=== PATIENT | female | born 1995 | race Caucasian/White ===

== ENCOUNTER 2016-10-15 12:14 | Emergency (ER) | payer MEDICAID ==
[2016-10-15 12:30] VITALS: BP 124/75; PULSE 114; RESP 16; TEMP 98.4; O2SAT 92
== END 2016-10-15 13:45 | disposition left against medical advice (07) ==
DX: Z53.21 Procedure and treatment not carried out due to patient leaving prior to being seen by health care provider (principal)

== ENCOUNTER 2016-10-30 15:30 | Inpatient (IN) | payer MEDICAID ==
[2016-10-30] MEDS ORDERED: NS 1,000 ML IV ONE (15:35)
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
[2016-10-30] MEDS ORDERED: levETIRAcetam 500 MG in NS 100 ML IV ONE (15:42)
[2016-10-30 15:52] LABS: % IMMATURE GRANULYOCYTES 0.5 % (0.0-1.1); ABSOLUTE IMMATURE GRANULOCYTES 0.05 10^3/uL (0.00-0.10); ADD DIFF? NO; ADD MORPH? YES; ADD SCAN? NO; ATYPICAL LYMPHOCYTE FLAG 40 (0-99); FRAGMENT RBC FLAG 20 (0-99); HEMATOCRIT 36.9 % (38.0-47.0); HEMOGLOBIN 12.1 g/dL (12.6-16.3); LEFT SHIFT FLG 0 (0-99); LIPEMIA HEMOLYSIS FLAG 80 (0-99); MEAN CELL HEMOGLOBIN 22.2 pg (27.9-34.1); MEAN CELL HEMOGLOBIN CONCENTR. 32.8 g/dL (32.4-36.7); MEAN CELL VOLUME 67.6 fL (81.5-99.8); MEAN PLATELET VOLUME 10.3 fL (8.7-11.7); PLATELET CLUMPS FLAG 20 (0-99); PLATELET COUNT 332 10^3/uL (150-400); RED BLOOD CELL COUNT 5.46 10^6/uL (4.18-5.33); RED CELL DISTRIBUTION WIDTH 15.9 % (11.5-15.2)
[2016-10-30 16:05] LABS: ANION GAP 17 mEq/L (8-16); CALCIUM 9.8 mg/dL (8.5-10.4); CARBON DIOXIDE 20 mEq/l (22-31); CHLORIDE 105 mEq/L (97-110); CREATININE 0.7 mg/dL (0.6-1.0); ETHANOL SERUM 229 mg/dL (0-10); GLOMERULAR FILTRATION RATE > 60; GLUCOSE 83 mg/dL (70-100); POTASSIUM 4.1 mEq/L (3.5-5.2); SODIUM 142 mEq/L (134-144)
[2016-10-30 16:22] LABS: ELLIPTOCYTES 1+; HYPOCHROMIA 1+; MICROCYTES 2+; PLATELET ESTIMATE ADEQUATE (ADEQ)
[2016-10-30] MEDS ORDERED: LORazepam 2 MG/ML INJ IVP ONE (17:39)
[2016-10-30] MEDS ORDERED: LORazepam 2 MG/ML INJ ONE (17:40)
[2016-10-30] MEDS ORDERED: ONDANSETRON 4 MG/2 ML VIAL ONE (18:23)
[2016-10-30] MEDS ORDERED: ONDANSETRON 4 MG/2 ML VIAL IVP ONE (18:36)
[2016-10-30] MEDS ORDERED: ONDANSETRON DISINTEGRATING 4 MG TAB PO PRN (19:31)
[2016-10-30] MEDS ORDERED: NALOXONE HCL 0.4 MG/ML INJ IVP PRN (19:31)
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
[2016-10-30] MEDS: levETIRAcetam 500 MG in NS 100 ML IV SCH (21:28)
[2016-10-30] MEDS: LORazepam 2 MG/ML INJ IVP PRN ×2 (21:38→22:42)
[2016-10-30] MEDS: FAMOTIDINE 20 MG/NACL 50 ML IV SCH (21:53)
[2016-10-30 22:07] LABS: PHENCYCLIDINE URINE BCH < 6 ng/ml (NEGATIVE); PHENCYCLIDINE URINE BCH NEGATIVE (NEGATIVE)
[2016-10-30 22:35] LABS: TETRAHYDROCANNABINOL URINE > 800 ng/mL (NEGATIVE)
[2016-10-31] MEDS: LORazepam 2 MG/ML INJ IVP PRN ×4 (00:40→12:13)
[2016-10-31] MEDS: ONDANSETRON 4 MG/2 ML VIAL IVP PRN ×2 (01:10→06:54)
[2016-10-31] MEDS: FAMOTIDINE 20 MG/NACL 50 ML IV SCH ×2 (01:30→08:24)
[2016-10-31] MEDS: levETIRAcetam 500 MG in NS 100 ML IV SCH (08:24)
[2016-10-31] MEDS ORDERED: LEVETIRACETAM 1500 MG PO SCH (09:00)
[2016-10-31] MEDS ORDERED: levETIRAcetam 500 MG TAB PO SCH (09:00)
[2016-10-31] MEDS ORDERED: NON-FORMULARY NEW DRUG (Topiramate [Topamax] 50 MG) PO SCH (09:00)
[2016-10-31] MEDS ORDERED: ACYCLOVIR 400 MG TAB PO SCH (09:00)
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
--- NOTE | 2016-10-31 10:39 | SOAPPROG ---
SOAP Progress Note Assessment/Plan: Assessment: Plan: Subjective: awake, alert, impatient to leave mri neck pending, ortho eval pending. lungs clear, heart nml, no new complaints. states she does not want clavicle surgery. dc when eval completed. Objective: Vital Signs Temp Pulse Resp BP Pulse Ox 36.6 C 77 17 116/67 92 10/31/16 08:30 10/31/16 10:00 10/31/16 10:00 10/31/16 10:00 10/31/16 10:00 10/30/16 10/31/16 11/01/16 05:59 05:59 05:59 Intake Total 1260 Balance 1260 ICD10 Worksheet Patient Problems: Problems Problem Status Onset Alcohol intoxication Acute Skull fracture Acute Subarachnoid hemorrhage Acute Allergic reaction Acute Seizure Acute Subdural hemorrhage Acute
[2016-10-31 11:39] VITALS: BP 127/80; PULSE 72; RESP 14; TEMP 97.3; O2SAT 96
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
[2016-10-31] MEDS ORDERED: NICOTINE 14 MG/24 HR PATCH TD SCH (14:30)
[2016-10-31] MEDS ORDERED: NON-FORMULARY NEW DRUG (Mirtazapine [Remeron] 15 MG) PO SCH (21:00)
[2016-10-31] MEDS ORDERED: MIRTAZAPINE 15 MG TAB PO SCH (21:00)
[2016-11-01] MEDS ORDERED: TOPIRAMATE 25 MG TAB PO SCH (09:00)
== END 2016-10-31 14:59 | disposition left against medical advice (07) | DRG 86 ==
LOC: EDUNIT# → OBSVTOIN 19:31 → F2N 21:08 → F3N 10-31 11:33
PROVIDERS: ADMIT Surgery; ATTEND Surgery
DX: S02.101A Fracture of base of skull, right side, initial encounter for closed fracture (principal); S22.020A Wedge compression fracture of second thoracic vertebra, initial encounter for closed fracture; S22.030A Wedge compression fracture of third thoracic vertebra, initial encounter for closed fracture; T42.6X6A Underdosing of other antiepileptic and sedative-hypnotic drugs, initial encounter; S06.6X0A Traumatic subarachnoid hemorrhage without loss of consciousness, initial encounter; G40.909 Epilepsy, unspecified, not intractable, without status epilepticus; F12.929 Cannabis use, unspecified with intoxication, unspecified; F10.920 Alcohol use, unspecified with intoxication, uncomplicated; F31.9 Bipolar disorder, unspecified; Y90.7 Blood alcohol level of 200-239 mg/100 ml; Z87.820 Personal history of traumatic brain injury; Z72.0 Tobacco use; V10.0XXA Pedal cycle driver injured in collision with pedestrian or animal in nontraffic accident, initial encounter; Y93.55 Activity, bike riding; Y92.414 Local residential or business street as the place of occurrence of the external cause; S42.001A Fracture of unspecified part of right clavicle, initial encounter for closed fracture; Z59.0 Homelessness
CPT/HCPCS: 80307; 96374; 97161-GP; G0480; J1953; J2060; J2405

== ENCOUNTER 2017-04-14 06:01 | Emergency (ER) | payer MEDICAID ==
[2017-04-14 06:21] VITALS: RESP 16
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
[2017-04-14] MEDS ORDERED: CHLORDIAZEPOXIDE 25MG PREPK#6 BTL TAKEHOME ONE (06:51)
[2017-04-14] MEDS ORDERED: ONDANSETRON DISINTEGRATING 4 MG TAB PO ONE (06:51)
[2017-04-14 07:00] VITALS: BP 129/83; PULSE 76; TEMP 97.9; O2SAT 94
== END 2017-04-14 06:59 | disposition home or self-care (01) ==
DX: R11.2 Nausea with vomiting, unspecified (principal); F10.239 Alcohol dependence with withdrawal, unspecified; J45.909 Unspecified asthma, uncomplicated; F17.200 Nicotine dependence, unspecified, uncomplicated; Z91.040 Latex allergy status; Z91.010 Allergy to peanuts

== ENCOUNTER 2018-02-14 21:23 | Emergency (ER) | payer MEDICAID ==
[2018-02-14] MEDS ORDERED: NS 1,000 ML IV ONE (21:52)
[2018-02-14] MEDS ORDERED: PANTOPRAZOLE SODIUM 40 MG VIAL IVP ONE (21:52)
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
[2018-02-14] MEDS ORDERED: levETIRAcetam 500MG/NACL 100 ML IV ONE (22:03)
[2018-02-14] MEDS ORDERED: LORazepam 2 MG/ML INJ IVP ONE (22:03)
[2018-02-14] MEDS ORDERED: LORazepam 2 MG/ML INJ IM ONE (22:28)
[2018-02-14 23:12] LABS: PLATELET COUNT 253 10^3/uL (150-400)
[2018-02-14] MEDS ORDERED: ONDANSETRON 4 MG/2 ML VIAL IVP ONE (23:18)
[2018-02-14 23:27] LABS: CREATINE KINASE 47 IU/L (0-156)
[2018-02-14] MEDS ORDERED: PROMETHAZINE HCL 25 MG/ML INJ IVP ONE (23:32)
[2018-02-14] MEDS ORDERED: IOPAMIDOL (ISOVUE-300) 100 ML BTL ONE (23:38)
[2018-02-15] MEDS ORDERED: ONDANSETRON 4MG PREPACK#2 BTL TAKEHOME ONE (00:34)
[2018-02-15 01:43] VITALS: BP 123/67
== END 2018-02-15 01:42 | disposition home or self-care (01) ==
DX: K29.20 Alcoholic gastritis without bleeding (principal); F10.920 Alcohol use, unspecified with intoxication, uncomplicated
CPT/HCPCS: 96365; G0480; J1953; J2060; J2405; J2550; Q9967

== ENCOUNTER 2018-05-03 05:28 | Emergency (ER) | payer MEDICAID ==
[2018-05-03 05:33] VITALS: BP 136/96
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
== END 2018-05-03 06:51 | disposition home or self-care (01) ==
DX: L02.412 Cutaneous abscess of left axilla (principal); F17.200 Nicotine dependence, unspecified, uncomplicated

== ENCOUNTER 2018-05-20 08:44 | Inpatient (IN) | payer MEDICAID ==
[2018-05-20] MEDS ORDERED: NS 1,000 ML IV ONE (09:23)
[2018-05-20] MEDS ORDERED: ONDANSETRON DISINTEGRATING 4 MG TAB PO ONE (09:23)
--- NOTE | 2018-05-20 09:26 | EDPHY ---
H & P Time Seen by Provider: 05/20/18 09:13 HPI/ROS: CHIEF COMPLAINT: Vomiting, carpal spasm HISTORY OF PRESENT ILLNESS: Patient is a 22-year-old male who has a history of intermittent episodes of vomiting. She has an endoscopy scheduled. Last night she developed numerous episodes of vomiting. It was persisted throughout the night. She has been unable to tolerate any food or liquid intake due to the vomiting. A few hours ago she began to developed abdominal cramping and carpal spasm. Patient denies any drug use. She denies alcohol. No fevers or chills. No diarrhea. REVIEW OF SYSTEMS: 10 systems were reveiwed and are negative with the exception of the elements mentioned in the history of present illness. Past Medical/Surgical History: Includes chronic vomiting episodes, bipolar disorder, peptic ulcer disease, seizure, traumatic brain injury Past surgical history: Clavicle surgery Social history: Patient denies drugs or alcohol Smoking Status: Current every day smoker Physical Exam: Vitals noted. Tachycardic. GENERAL: Mild acute distress, alert. Answer my questions appropriately HEENT: Dry mucous membranes, no signs of dehydration. NECK: Normal, supple. RESPIRATORY: Clear to auscultation bilaterally, no rales, rhonchi or wheezing. CVS: Regular rate and rhythm, no rubs, murmurs, or gallops. ABDOMEN: Soft, nontender, nondistended, no organomegaly. Benign BACK: Normal to inspection, no CVA tenderness. SKIN: Normal color, no rash, warm, dry. No pallor. EXTREMITIES: Bilateral carpal spasm. No pedal edema, no calf tenderness, no Homans sign or cords, no joint swelling. NEURO/PSYCH: Alert and oriented, normal mood and affect, normal motor sensory exam. No obvious cranial nerve deficit. Constitutional: Initial Vital Signs Heart Rate 154 H 05/20/18 08:50 Respiratory Rate 22 H 05/20/18 08:50 Blood Pressure 130/101 H 05/20/18 08:50 O2 Sat (%) 95 05/20/18 08:50 O2 Delivery Mode Room Air Allergies/Adverse Reactions: diphenhydramine HCl [From Benadryl] Allergy (Verified 05/20/18 10:46) Hives latex Allergy (Verified 05/20/18 08:55) peanut Allergy (Verified 05/20/18 08:55) BEE STING Allergy (Uncoded 05/20/18 08:55) Home Medications: Medication Instructions Recorded [place] Carbonate [[place] 600 mg PO HS 02/07/18 Carbonate Cap 300 mg (*)] Metoclopramide [Reglan 10 mg tab 5 - 10 mg PO TID PRN 02/07/18 (*)] QUEtiapine FUMARATE [Seroquel 25 25 mg PO BID PRN 02/07/18 mg (*)] Ranitidine HCl [Zantac] 300 mg PO BID PRN 02/07/18 Sucralfate [Carafate 1 GM (*)] 1 gm PO QID 02/07/18 Temazepam [Restoril 15 MG (*)] 15 mg PO HS PRN 02/07/18 levETIRAcetam [Keppra] 1,500 mg PO BID 02/07/18 traZODone [traZODONE 50MG (*)] 50 mg PO HS 02/07/18 Ondansetron Odt [Zofran Odt 4 mg 4 mg PO Q4 PRN #12 tab 02/15/18 (*)] Pantoprazole Sodium [Protonix 40mg 40 mg PO DAILY #30 tab 02/15/18 (*)] Promethazine HCl [Phenergan] 25 mg RC Q6 PRN #10 supp.rect 02/15/18 QUEtiapine FUMARATE [Seroquel 300 mg PO HS 05/20/18 300mg (*)] Medical Decision Making - Diagnostics Imaging Results: Imaging Impressions Abdomen Ultrasound 05/20/18 10:14 Impression: 1. The liver is upper-normal in size, with mild generalized hepatic steatosis. 2. Normal appearance of the gallbladder. 3. Mild stable prominence of the common bile duct, slightly smaller than on 02/14, with no associated intrahepatic bile duct dilatation or choledocholithiasis observed. The patient's total bilirubin is reportedly elevated, and if there is further clinical concern, an MRCP could be considered. Findings were discussed with HAYDEN LANGE MD at 10:57, on 05/20/2018. ED Course/Re-evaluation: In the emergency department I discussed possible etiologies with the patient. I answered all her questions. IV placed. Laboratory studies were obtained. Patient given normal saline 1 L IV for hydration EKG: Sinus tachycardia at 134. Normal axis. Normal intervals. No ST or T- wave abnormality. Patient's white count was normal. The patient was mildly anemic with hematocrit 37. Patient's chemistry panel was abnormal. Her sodium was low 133. Potassium was low at 2.8. Chloride was pending. Carbon dioxide was 23. Anion gap was elevated at 35. creatinine was elevated at 1.7. Glucose was 106. Total bilirubin was elevated at 7.6. Lipase was 38. was negative. Calcium was normal at 9.4. Patient was given potassium 60 mEq orally. Patient was given normal saline 500 mL IV. Ultrasound of the right upper quadrant was ordered. Ultrasound: Please refer the dictated report. Patient has mildly elevated size of her common bile duct. However, Dr. Johnson compared this with a previous CT scan when it was larger during the CT imaging study. No stones noted. I discussed the case with the hospitalist service. Dr. Mayorga will admit. I discussed the results with the patient. I answered all her questions. Differential Diagnosis: My differential includes but is not limited to electrolyte abnormality, sugar abnormality, dehydration, small-bowel obstruction, perforation - Data Points Laboratory Results: Laboratory Results 05/20/18 09:30 05/20/18 09:30 05/20/18 05/20/18 05/20/18 10:00 10:00 09:45 WBC RBC Hgb Hct MCV MCH MCHC RDW Plt Count MPV Neut % (Auto) Lymph % (Auto) Parke % (Auto) Eos % (Auto) Baso % (Auto) Nucleat RBC Rel Count Absolute Neuts (auto) Absolute Lymphs (auto) Absolute Monos (auto) Absolute Eos (auto) Absolute Basos (auto) Absolute Nucleated RBC Immature Gran % Immature Gran # PT 14.7 SEC SEC (12.0-15.0) INR 1.20 H (0.83-1.16) APTT 31.0 SEC SEC (23.0-38.0) Sodium Potassium Chloride Carbon Dioxide Anion Gap BUN Creatinine Estimated GFR Glucose Calcium Magnesium Pending Total Bilirubin Conjugated Bilirubin Unconjugated Bilirubin AST ALT Alkaline Phosphatase Total Protein Albumin Lipase Beta HCG, Qual Hepatitis A IgM Ab Pending Hep Bs Antigen Pending Hep B Core IgM Ab Pending Hepatitis C Antibody Pending 05/20/18 05/20/18 05/20/18 09:30 09:30 09:30 WBC 9.27 10^3/uL 10^3/uL (3.80-9.50) RBC 5.28 10^6/uL 10^6/uL (4.18-5.33) Hgb 12.2 g/dL L g/dL (12.6-16.3) Hct 37.6 % L % (38.0-47.0) MCV 71.2 fL L fL (81.5-99.8) MCH 23.1 pg L pg (27.9-34.1) MCHC 32.4 g/dL g/dL (32.4-36.7) RDW 18.4 % H % (11.5-15.2) Plt Count 254 10^3/uL 10^3/uL (150-400) MPV 9.5 fL fL (8.7-11.7) Neut % (Auto) 85.0 % H % (39.3-74.2) Lymph % (Auto) 7.3 % L % (15.0-45.0) Parke % (Auto) 7.1 % % (4.5-13.0) Eos % (Auto) 0.0 % L % (0.6-7.6) Baso % (Auto) 0.2 % L % (0.3-1.7) Nucleat RBC Rel Count 0.9 % H % (0.0-0.2) Absolute Neuts (auto) 7.87 10^3/uL H 10^3/uL (1.70-6.50) Absolute Lymphs (auto) 0.68 10^3/uL L 10^3/uL (1.00-3.00) Absolute Monos (auto) 0.66 10^3/uL 10^3/uL (0.30-0.80) Absolute Eos (auto) 0.00 10^3/uL L 10^3/uL (0.03-0.40) Absolute Basos (auto) 0.02 10^3/uL 10^3/uL (0.02-0.10) Absolute Nucleated RBC 0.08 10^3/uL H 10^3/uL (0-0.01) Immature Gran % 0.4 % % (0.0-1.1) Immature Gran # 0.04 10^3/uL 10^3/uL (0.00-0.10) PT INR APTT Sodium 133 mEq/L L mEq/L (135-145) Potassium 2.8 mEq/L L mEq/L (3.5-5.2) Chloride 75 mEq/L L mEq/L (97-110) Carbon Dioxide 23 mEq/l mEq/l (22-31) Anion Gap 35 mEq/L H mEq/L (6-14) BUN 12 mg/dL mg/dL (7-23) Creatinine 1.7 mg/dL H mg/dL (0.6-1.0) Estimated GFR 37 Glucose 106 mg/dL H mg/dL (70-100) Calcium 9.4 mg/dL mg/dL (8.5-10.4) Magnesium Total Bilirubin 7.6 mg/dL H mg/dL (0.1-1.4) Conjugated Bilirubin 3.3 mg/dL H mg/dL (0.0-0.5) Unconjugated Bilirubin 4.3 mg/dL H mg/dL (0.0-1.1) AST 591 IU/L H IU/L (14-46) ALT 218 IU/L H IU/L (9-52) Alkaline Phosphatase 114 IU/L IU/L (38-126) Total Protein 8.9 g/dL H g/dL (6.3-8.2) Albumin 5.5 g/dL H g/dL (3.5-5.0) Lipase 38 IU/L IU/L (23-300) Beta HCG, Qual NEGATIVE Hepatitis A IgM Ab Hep Bs Antigen Hep B Core IgM Ab Hepatitis C Antibody Medications Given: Discontinued Medications Sodium Chloride (Ns) 1,000 mls @ 0 mls/hr IV EDNOW ONE; Wide Open PRN Reason: Protocol Stop: 05/20/18 09:24 Last Admin: 05/20/18 09:45 Dose: 1,000 mls Sodium Chloride (Ns) 500 mls @ 0 mls/hr IV EDNOW ONE; Wide Open PRN Reason: Protocol Stop: 05/20/18 10:15 Last Admin: 05/20/18 10:47 Dose: 500 mls Ondansetron HCl (Zofran Odt) 4 mg PO EDNOW ONE Stop: 05/20/18 09:24 Last Admin: 05/20/18 09:42 Dose: Not Given Ondansetron HCl (Zofran) 4 mg IVP EDNOW ONE Stop: 05/20/18 09:43 Last Admin: 05/20/18 09:45 Dose: 4 mg Potassium Chloride (Potassium Chloride Oral Liquid) 60 meq PO EDNOW ONE Stop: 05/20/18 10:18 Last Admin: 05/20/18 11:03 Dose: Not Given Departure - Departure Disposition: [facility] Acute Clinical Impression: Hyponatremia, Renal insufficiency, High bilirubin Vomiting Qualifiers: Vomiting type: unspecified Vomiting Intractability: non-intractable Nausea presence: with nausea Qualified Code(s): R11.2 - Nausea with vomiting, unspecified Condition: Good
[2018-05-20] MEDS ORDERED: ONDANSETRON 4 MG/2 ML VIAL IVP ONE (09:42)
[2018-05-20 09:53] LABS: PLATELET COUNT 254 10^3/uL (150-400)
[2018-05-20] MEDS ORDERED: NS 500 ML IV ONE (10:14)
[2018-05-20 10:28] LABS: INR 1.2 (0.83-1.16); PROTIME(PATIENT) 14.7 SEC (12.0-15.0)
[2018-05-20] MEDS ORDERED: HYDROmorphONE/DILAUDID 1 MG/ML INJ IVP PRN (10:46)
[2018-05-20] MEDS ORDERED: ONDANSETRON 4 MG/2 ML VIAL IVP PRN (10:46)
[2018-05-20] MEDS ORDERED: ONDANSETRON DISINTEGRATING 4 MG TAB PO PRN (10:46)
[2018-05-20] MEDS: POTASSIUM CL 20 MEQ/15 ML UDCUP PO ONE ×2 (10:47→11:03)
[2018-05-20] MEDS ORDERED: PROMETHAZINE HCL 25 MG/ML INJ IVP PRN (10:57)
[2018-05-20] MEDS ORDERED: NS W/ 20 KCl/L 1,000 ML IV SCH (11:00)
[2018-05-20] MEDS ORDERED: MAGNESIUM SULF 2 GM/WATER 50 ML IV ONE ×2 (12:40→12:50)
[2018-05-20] MEDS ORDERED: PROTOCOL MAGNESIUM 1 DOSE IV PRN (12:41)
[2018-05-20] MEDS ORDERED: LORazepam 1 MG TAB PO PRN (12:45)
[2018-05-20] MEDS ORDERED: FLUMAZENIL 0.5 MG/5 ML MDV IVP PRN (12:45)
[2018-05-20] MEDS ORDERED: TEMAZEPAM 15 MG CAP PO PRN (12:47)
[2018-05-20] MEDS ORDERED: QUEtiapine FUMARATE 25 MG TAB PO PRN (12:47)
--- NOTE | 2018-05-20 13:04 | PDGENHP ---
History and Physical - Chief Complaint N/V - History of Present Illness 22 yo female with h/o etoh abuse, PUD, and TBI with seizure disorder presents to ED with N/V for past 2 days. She denies hematemesis or coffee ground emesis. No melena or hematochezia. She c/o epigastric and RUQ pain. No fevers /chills. No CP or SOB. She says she has a h/o intermittent N/V dating back years. She has an outpatient EGD planned at [place] later this week. She drinks several shots of whiskey daily and cannot recall the last time she went > 24 hrs without alcohol. She was sober for 1 year at one point due to legal trouble and probation. However, she has little incentive or desire to maintain sobriety. She has been unable to tolerate oral intake for past 2 days. Upon arrival to the ED, she was tachycardic in the 150's, but normotensive and afebrile. She received 1.5 L NS. Her potassium was quite low at 2.8. She was given 60 mEq's oral potassium, but vomited this immediately after. She has had contractures in her hands and UE's. History Information - Allergies/Home Medication List Allergies/Adverse Reactions: diphenhydramine HCl [From Benadryl] Allergy (Verified 05/20/18 10:46) Hives latex Allergy (Verified 05/20/18 08:55) peanut Allergy (Verified 05/20/18 08:55) BEE STING Allergy (Uncoded 05/20/18 08:55) Home Medications: [place] Carbonate [[place] Carbonate Cap 300 mg (*)] 600 mg PO HS 02/07/18 [ Last Taken 05/19/18] Metoclopramide [Reglan 10 mg tab (*)] 5 - 10 mg PO TID PRN 02/07/18 [Last Taken 05/20/18] QUEtiapine FUMARATE [Seroquel 25 mg (*)] 25 mg PO BID PRN 02/07/18 [Last Taken 02/06/18 08:00] Ranitidine HCl [Zantac] 300 mg PO BID PRN 02/07/18 [Last Taken 3 Days Ago ~02/04] Sucralfate [Carafate 1 GM (*)] 1 gm PO QID 02/07/18 [Last Taken 05/20/18] Temazepam [Restoril 15 MG (*)] 15 mg PO HS PRN 02/07/18 [Last Taken 02/05/18] levETIRAcetam [Keppra] 1,500 mg PO BID 02/07/18 [Last Taken 05/20/18] traZODone [traZODONE 50MG (*)] 50 mg PO HS 02/07/18 [Last Taken 05/19/18] QUEtiapine FUMARATE [Seroquel 300mg (*)] 300 mg PO HS 05/20/18 [Last Taken 05/19] I have personally reviewed and updated: family history, medical history, social history, surgical history - Past Medical History Additional medical history: estranged from her biologic family. Bipolar disorder. Alcohol abuse / dependence. Seizure disorder. TBI. PUD - Surgical History Reports: no pertinent surgical hx - Family History Additional family history: Alcoholism - Social History Smoking Status: Current every day smoker Tobacco Use: Greater than 1 pack/day Alcohol Use: Heavy Drug Use: Marijuana Review of Systems Review of Systems: ROS: 10pt was reviewed & negative except for what was stated in HPI & below Physical Exam Physical Exam: Temp Pulse Resp BP Pulse Ox 36.8 C 82 16 125/88 H 95 05/20/18 11:43 05/20/18 11:43 05/20/18 11:43 05/20/18 11:43 05/20/18 11:43 Constitutional: no apparent distress Eyes: PERRL Ears, Nose, Mouth, Throat: moist mucous membranes Cardiovascular: regular rate and rhythym Respiratory: no respiratory distress, clear to auscultation Gastrointestinal: other (soft, nondistended, +epigastric and RUQ TTP, no r/r/g, liver edge palpable) Skin: warm, other (small excoriations on face) Musculoskeletal: full muscle strength Neurologic: AAOx3, other (mild hand contractures) Psychiatric: interacting appropriately Lab Data & Imaging Review 05/20/18 09:30 05/20/18 15:33 WBC 9.27 10^3/uL (3.80-9.50) 05/20/18 09:30 RBC 5.28 10^6/uL (4.18-5.33) 05/20/18 09:30 Hgb 12.2 g/dL (12.6-16.3) L 05/20/18 09:30 Hct 37.6 % (38.0-47.0) L 05/20/18 09:30 MCV 71.2 fL (81.5-99.8) L 05/20/18 09:30 MCH 23.1 pg (27.9-34.1) L 05/20/18 09:30 MCHC 32.4 g/dL (32.4-36.7) 05/20/18 09:30 RDW 18.4 % (11.5-15.2) H 05/20/18 09:30 Plt Count 254 10^3/uL (150-400) 05/20/18 09:30 MPV 9.5 fL (8.7-11.7) 05/20/18 09:30 Neut % (Auto) 85.0 % (39.3-74.2) H 05/20/18 09:30 Lymph % (Auto) 7.3 % (15.0-45.0) L 05/20/18 09:30 [place] % (Auto) 7.1 % (4.5-13.0) 05/20/18 09:30 Eos % (Auto) 0.0 % (0.6-7.6) L 05/20/18 09:30 Baso % (Auto) 0.2 % (0.3-1.7) L 05/20/18 09:30 Nucleat RBC Rel Count 0.9 % (0.0-0.2) H 05/20/18 09:30 Absolute Neuts (auto) 7.87 10^3/uL (1.70-6.50) H 05/20/18 09:30 Absolute Lymphs (auto) 0.68 10^3/uL (1.00-3.00) L 05/20/18 09:30 Absolute Monos (auto) 0.66 10^3/uL (0.30-0.80) 05/20/18 09:30 Absolute Eos (auto) 0.00 10^3/uL (0.03-0.40) L 05/20/18 09:30 Absolute Basos (auto) 0.02 10^3/uL (0.02-0.10) 05/20/18 09:30 Absolute Nucleated RBC 0.08 10^3/uL (0-0.01) H 05/20/18 09:30 Immature Gran % 0.4 % (0.0-1.1) 05/20/18 09:30 Immature Gran # 0.04 10^3/uL (0.00-0.10) 05/20/18 09:30 PT 14.7 SEC (12.0-15.0) 05/20/18 09:45 INR 1.20 (0.83-1.16) H 05/20/18 09:45 APTT 31.0 SEC (23.0-38.0) 05/20/18 09:45 Sodium 133 mEq/L (135-145) L 05/20/18 09:30 Potassium 2.8 mEq/L (3.5-5.2) L 05/20/18 09:30 Chloride 75 mEq/L (97-110) L 05/20/18 09:30 Carbon Dioxide 23 mEq/l (22-31) 05/20/18 09:30 Anion Gap 35 mEq/L (6-14) H 05/20/18 09:30 BUN 12 mg/dL (7-23) 05/20/18 09:30 Creatinine 1.7 mg/dL (0.6-1.0) H 05/20/18 09:30 Estimated GFR 37 05/20/18 09:30 Glucose 106 mg/dL (70-100) H 05/20/18 09:30 Calcium 9.4 mg/dL (8.5-10.4) 05/20/18 09:30 Magnesium 0.7 mg/dL (1.6-2.3) L* 05/20/18 10:00 Total Bilirubin 7.6 mg/dL (0.1-1.4) H 05/20/18 09:30 Conjugated Bilirubin 3.3 mg/dL (0.0-0.5) H 05/20/18 09:30 Unconjugated Bilirubin 4.3 mg/dL (0.0-1.1) H 05/20/18 09:30 AST 591 IU/L (14-46) H 05/20/18 09:30 ALT 218 IU/L (9-52) H 05/20/18 09:30 Alkaline Phosphatase 114 IU/L (38-126) 05/20/18 09:30 Total Protein 8.9 g/dL (6.3-8.2) H 05/20/18 09:30 Albumin 5.5 g/dL (3.5-5.0) H 05/20/18 09:30 Lipase 38 IU/L (23-300) 05/20/18 09:30 Beta HCG, Qual NEGATIVE 05/20/18 09:30 Visualized and Interpreted EKG results: Yes EKG additional interpertation: sinus tachycardia Assessment & Plan Assessment: N/V - in setting of alcoholic hepatitis and possible gastritis component. No hematemesis or coffee ground emesis. -cont IVF's, anti-emetics, IV PPI -check H Pylori Ab, if positive would treat given active symptoms -may warrant GI consult / inpt EGD if not improving. She has EGD planned as outpt at [place] later this week. Alcohol induced hepatitis - this is most likely etiology of elevated LFT's with AST>ALT and elevated bili with nl alk phos and heavy etoh hx. DF 13, no steroids indicated. U/S reviewed- mild hepatic steatosis, nl gb and no biliary ductal dilatation. -supportive care with IVF's -trend LFT's -send viral hepatitis panel and tylenol level Hypokalemia / Hypomagnesemia - symptomatic with UE muscle contractures and weakness, 2/2 GI losses in setting of N/V. EKG ok. -replace Mag per protocol -replace K and rpt bmp this afternoon -monitor on telemetry GERHARD - likely pre-renal given above -NS, follow Seizure disorder with h/o TBI -IV Keppra for now given inability to tolerate po SIRS - likely due to volume depletion with N/V and hepatitis, HR already improved with IVF's -cont IV hydration Bipolar disorder - cont Seroquel as tolerated DVT PPLX - SCD's for now, defer pharm with etoh hx and vomiting due to bleeding risk Full code Dispo - admit to inpt, anticipate >48 hrs hospitalization for management of N/V , alcoholic hepatitis and volume depletion with electrolyte abnormalities. Requested CM to contact [place] to see if they would like her transferred to their facility given her [place] insurance.
[2018-05-20 13:05] LABS: HEPATITIS B SURFACE ANTIGEN NEGATIVE (NEGATIVE)
[2018-05-20 13:06] LABS: HEPATITIS A ANTIBODY IGM (BCH) NEGATIVE (NEGATIVE); HEPATITIS B CORE AB IGM NEGATIVE (NEGATIVE)
[2018-05-20 13:17] LABS: HEPATITIS C ANTIBODY TOTAL NEGATIVE (NEGATIVE)
[2018-05-20] MEDS: PANTOPRAZOLE SODIUM 40 MG VIAL IVP SCH (13:17)
[2018-05-20] MEDS: NICOTINE 21 MG/24 HR PATCH TD SCH (13:59)
[2018-05-20] MEDS: levETIRAcetam 750 MG in NS 100 ML IV SCH ×2 (14:08→22:05)
[2018-05-20] MEDS: POTASSIUM Cl (KCl) 100 ML IV SCH ×4 (14:31→18:22)
[2018-05-20] MEDS ORDERED: PROTOCOL POTASSIUM 1 DOSE MISC PRN (16:24)
[2018-05-20] MEDS ORDERED: POTASSIUM Cl (KCl) 100 ML IV SCH (16:30)
[2018-05-20] MEDS: POTASSIUM Cl (KCl) 40 MEQ in NS 1,000 ML IV SCH (17:11)
[2018-05-20] MEDS: oxyCODONE IR 5 MG TAB PO PRN (17:48)
[2018-05-20] MEDS ORDERED: POTASSIUM CL 10 MEQ TAB PO ONE (20:04)
[2018-05-20] MEDS: traZODone 50 MG TAB PO SCH (20:13)
[2018-05-20] MEDS: QUEtiapine FUMARATE 300 MG TAB PO SCH (20:14)
[2018-05-20] MEDS: LITHIUM CARBONATE 300 MG CAP PO SCH (20:14)
--- NOTE | 2018-05-20 21:25 | PDMN ---
Medical Necessity Medical necessity: Pt meets IP criteria per & MCG M-[id number] Liver Disease Complications; est los >2 mn for eval/tx of alcohol induced hepatitis w/volume depletion, electrolyte abnormalities, acute kidney injury & N/V requiring further monitoring, IVFs, IV antiemetics & advancement of diet as tolerated; hx etoh abuse, TBI, seizures; per H&P & order 05/20/18
[2018-05-20] MEDS: LORazepam 2 MG/ML INJ IVP PRN (22:36)
[2018-05-21 05:37] LABS: INR 1.34 (0.83-1.16)
[2018-05-21 05:45] LABS: PLATELET COUNT 129 10^3/uL (150-400)
[2018-05-21] MEDS ORDERED: POTASSIUM CL 10 MEQ TAB PO ONE (07:46)
[2018-05-21] MEDS: NICOTINE 21 MG/24 HR PATCH TD SCH (09:20)
[2018-05-21] MEDS: THIAMINE HCL 500 MG in NS 100 ML IV SCH (09:21)
[2018-05-21] MEDS: PANTOPRAZOLE SODIUM 40 MG VIAL IVP SCH (09:21)
[2018-05-21] MEDS: levETIRAcetam 750 MG in NS 100 ML IV SCH (09:21)
--- NOTE | 2018-05-21 10:15 | ASMTCAGE ---
CAGE Do you feel you ought to Answers: Yes cut down on your drinking or drug use? Do people annoy you by Answers: Yes criticizing your drinking or drug use? Do you feel guilty about Answers: Yes your drinking or drug use? Do you drink or use drugs Answers: No first thing in the morning ([employer] Room)? Date Signed: 05/21/2018 10:14 AM Electronically Signed By:MIKE Dave
--- NOTE | 2018-05-21 10:17 | ASMTCMCOM ---
CM Note CM Note Notes: Pts case discussed w/ Salma Gasca NP. Pt is a 22 y/o female admitted for hypokalemia and hyponatremia. Pt with a hx of etoh abuse. CM met w/ pt and provided etoh resources. CAGE completed. CM did want to discuss her etoh abuse further. Pt iwll most likely d/c independent when medically stable. Referral to [facility]. CM available for changes. Plan: Independent Date Signed: 05/21/2018 10:16 AM Electronically Signed By:MIKE Dave
[2018-05-21] MEDS: POTASSIUM Cl (KCl) 40 MEQ in NS 1,000 ML IV SCH (10:57)
--- NOTE | 2018-05-21 12:59 | HOSPPROG ---
Hospitalist Progress Note Assessment/Plan: 22 yo female with h/o etoh abuse, PUD, and TBI with seizure disorder presents to ED with N/V for past 2 days. First encounter, chart reviewed. *N/V - in setting of alcoholic hepatitis and possible gastritis component. -resolved, eating today -EGD at [place] as an OP -H pylori is negative -Tylenol level <10 -also uses Cannibis frequently-could be r/t hyperemesis syndrome (THC level 800) *Alcohol induced hepatitis -labs better today -viral hepatitis panel is negative -US shows mild hepatic steatosis, normal gallbladder, no biliary ductal dilatation *Hypokalemia / Hypomagnesemia -was symptomatic on admissions -on electrolyte protocol -tele *reflux -added prn TUMS *GERHARD -resolved *anemia, thrombocytopenia -poss dilutional and due to alcohol use -recheck in a.m. *Seizure disorder with h/o TBI -given IV Keppra, will resume her home oral meds *SIRS - due to the above -resolved *Bipolar disorder - cont Seroquel DVT PPLX - SCD's, ambulation *plan: order regular diet, discussed w patient the possible etiologies of her N/ V. Reviewed w her about hyperemesis syndrome and the impacts of alcohol. She said she needed to do one of them. Hopefully, can dc tomorrow and f/u with [place] as scheduled. Subjective: Aliza is feeling better, no longer vomiting. Objective: Vital Signs Temp Pulse Resp BP Pulse Ox 36.9 C 96 20 110/71 94 05/21/18 11:37 05/21/18 11:37 05/21/18 11:37 05/21/18 11:37 05/21/18 11:37 Laboratory Results 05/21/18 04:57 05/21/18 04:57 05/20/18 05/21/18 05/22/18 05:59 05:59 05:59 Intake Total 3420 Output Total 200 1600 Balance 3220 -1600 PT 16.0 SEC (12.0-15.0) H 05/21/18 04:57 INR 1.34 (0.83-1.16) H 05/21/18 04:57 - Physical Exam Constitutional: no apparent distress Eyes: PERRL, other (wearing glasses) Ears, Nose, Mouth, Throat: hearing normal Cardiovascular: regular rate and rhythym Respiratory: no respiratory distress, rhonchi (bases, loose cough ) Gastrointestinal: normoactive bowel sounds, soft, non-tender abdomen Skin: warm Neurologic: AAOx3 Psychiatric: interacting appropriately, poor insight ICD10 Worksheet Patient Problems: Problems Problem Status Onset High bilirubin Acute Hyponatremia Acute Renal insufficiency Acute Vomiting Acute Alcohol intoxication Acute Allergic reaction Acute Hypoglycemia Acute Hypokalemia Acute Seizure Acute Skull fracture Acute Subarachnoid hemorrhage Acute Subdural hemorrhage Acute
[2018-05-21] MEDS ORDERED: CALCIUM CARBONATE 500 MG CHEWABLE TAB PO PRN (14:24)
--- NOTE | 2018-05-21 15:48 | CPEKG ---
Test Reason : OPEN Blood Pressure : / mmHG Vent. Rate : 134 BPM Atrial Rate : 136 BPM P-R Int : 089 ms QRS Dur : 082 ms QT Int : 322 ms P-R-T Axes : 081 075 047 degrees QTc Int : 481 ms Sinus tachycardia Borderline prolonged QT interval Confirmed by Angi Garcia ([id number]) on 05/21/2018 3:47:49 PM Referred By: Angi Garcia Confirmed By:Angi Garcia
[2018-05-21] MEDS: levETIRAcetam 500 MG TAB PO SCH (19:48)
[2018-05-21] MEDS: LITHIUM CARBONATE 300 MG CAP PO SCH (19:48)
[2018-05-21] MEDS: QUEtiapine FUMARATE 300 MG TAB PO SCH (19:48)
[2018-05-21] MEDS: traZODone 50 MG TAB PO SCH (19:49)
[2018-05-21] MEDS: LORazepam 2 MG/ML INJ IVP PRN (20:00)
[2018-05-22] MEDS: LORazepam 2 MG/ML INJ IVP PRN ×3 (02:41→21:42)
[2018-05-22] MEDS: PANTOPRAZOLE SODIUM 40 MG VIAL IVP SCH (08:32)
[2018-05-22] MEDS: THIAMINE HCL 500 MG in NS 100 ML IV SCH (08:45)
[2018-05-22] MEDS: NICOTINE 21 MG/24 HR PATCH TD SCH (08:45)
[2018-05-22] MEDS: levETIRAcetam 500 MG TAB PO SCH ×2 (08:48→21:03)
[2018-05-22 08:51] LABS: PLATELET COUNT 122 10^3/uL (150-400)
[2018-05-22] MEDS ORDERED: MAGNESIUM SULF 1 GM/DEXTROSE 100 ML IV ONE (09:53)
[2018-05-22] MEDS ORDERED: POTASSIUM CL 10 MEQ TAB PO ONE ×2 (09:54→21:31)
[2018-05-22] MEDS ORDERED: PNEUMOCOCCAL 0.5ML VACCINE VIAL (PNEUMOVAX 23) IM ONE (10:54)
--- NOTE | 2018-05-22 15:40 | HOSPPROG ---
Hospitalist Progress Note Assessment/Plan: 22 yo female with h/o etoh abuse, PUD, and TBI with seizure disorder presents to ED with N/V for past 2 days. First encounter, chart reviewed. *N/V - in setting of alcoholic hepatitis and possible gastritis component. -resolved, eating today -EGD at [place] as an OP -H pylori is negative -Tylenol level <10 -also uses Cannibis frequently-could be r/t hyperemesis syndrome (THC level 800) *Alcohol induced hepatitis -LFT's a bit worse today, will recheck again in the morning -reviewed her labs in the past; these levels are much higher -viral hepatitis panel is negative -US shows mild hepatic steatosis, normal gallbladder, no biliary ductal dilatation *Hypokalemia / Hypomagnesemia -was symptomatic on admissions -on electrolyte protocol -tele *reflux -added prn TUMS *GERHARD -resolved *anemia, thrombocytopenia -poss dilutional and due to alcohol use -better today, has hx of thalassemia minor *Seizure disorder with h/o TBI -given IV Keppra, will resume her home oral meds *SIRS - due to the above -resolved *Bipolar disorder - cont Seroquel DVT PPLX - SCD's, ambulation *plan: recheck labs in the a.m., Kamilla is teary eyed, wants to go home, worried her boyfriend is drinking and not taking care of the dog and cat Subjective: Kamilla is very upset about not leaving, having some lower quadrant pain (on her menses) Objective: Vital Signs Temp Pulse Resp BP Pulse Ox 36.5 C 103 H 16 120/91 H 95 05/22/18 15:09 05/22/18 15:09 05/22/18 15:09 05/22/18 15:09 05/22/18 15:09 Laboratory Results 05/22/18 08:40 05/22/18 08:40 05/21/18 05/22/18 05/23/18 05:59 05:59 05:59 Intake Total 3420 1750 450 Output Total 200 5275 1000 Balance 3220 -3525 -550 PT 16.0 SEC (12.0-15.0) H 05/21/18 04:57 INR 1.34 (0.83-1.16) H 05/21/18 04:57 - Physical Exam Constitutional: appears nourished, uncomfortable Eyes: PERRL Ears, Nose, Mouth, Throat: hearing normal Cardiovascular: regular rate and rhythym Respiratory: no respiratory distress Gastrointestinal: normoactive bowel sounds, tenderness (bilat lower quadrants) Skin: warm Musculoskeletal: full muscle strength Neurologic: AAOx3 Psychiatric: anxious ICD10 Worksheet Patient Problems: Problems Problem Status Onset High bilirubin Acute Hyponatremia Acute Renal insufficiency Acute Vomiting Acute Alcohol intoxication Acute Allergic reaction Acute Hypoglycemia Acute Hypokalemia Acute Seizure Acute Skull fracture Acute Subarachnoid hemorrhage Acute Subdural hemorrhage Acute
[2018-05-22] MEDS: oxyCODONE IR 5 MG TAB PO PRN ×2 (17:31→21:05)
[2018-05-22] MEDS: traZODone 50 MG TAB PO SCH (21:04)
[2018-05-22] MEDS: LITHIUM CARBONATE 300 MG CAP PO SCH (21:04)
[2018-05-22] MEDS: QUEtiapine FUMARATE 300 MG TAB PO SCH (21:04)
[2018-05-23] MEDS ORDERED: MAGNESIUM SULF 1 GM/DEXTROSE 100 ML IV ONE (07:45)
[2018-05-23] MEDS ORDERED: POTASSIUM CL 10 MEQ TAB PO ONE (07:45)
[2018-05-23 08:58] VITALS: BP 91/65
[2018-05-23] MEDS: THIAMINE HCL 500 MG in NS 100 ML IV SCH (09:43)
[2018-05-23] MEDS: levETIRAcetam 500 MG TAB PO SCH (09:43)
--- NOTE | 2018-05-23 09:57 | HOSPPROG ---
Hospitalist Progress Note Assessment/Plan: 22 yo female with h/o etoh abuse, PUD, and TBI with seizure disorder presents to ED with N/V for past 2 days. *N/V - in setting of alcoholic hepatitis and possible gastritis component. -resolved, eating today -EGD at [facility] as an OP -H pylori is negative -Tylenol level <10 -also uses Cannibis frequently-could be r/t hyperemesis syndrome (THC level 800) *Alcohol induced hepatitis -better today -reviewed her labs in the past; these levels are much higher -viral hepatitis panel is negative -US shows mild hepatic steatosis, normal gallbladder, no biliary ductal dilatation *Hypokalemia / Hypomagnesemia -was symptomatic on admissions -on electrolyte protocol *reflux -added prn TUMS *GERHARD -resolved *anemia, thrombocytopenia -poss dilutional and due to alcohol use - hx of thalassemia minor *Seizure disorder with h/o TBI -given IV Keppra, will resume her home oral meds *SIRS - due to the above -resolved *Bipolar disorder - cont Seroquel DVT PPLX - SCD's, ambulation *plan: dc w close f/u with [facility], has an endoscopy scheduled Subjective: Kamilla said she is eating fine, no complaints. Objective: Vital Signs Temp Pulse Resp BP Pulse Ox 36.8 C 98 16 91/65 L 88 L 05/23/18 08:00 05/23/18 08:00 05/23/18 08:00 05/23/18 08:00 05/23/18 08:00 Laboratory Results 05/22/18 08:40 05/23/18 05:02 05/22/18 05/23/18 05/24/18 05:59 05:59 06:59 Intake Total 1750 500 Output Total 5275 1300 Balance -3525 -800 PT 16.0 SEC (12.0-15.0) H 05/21/18 04:57 INR 1.34 (0.83-1.16) H 05/21/18 04:57 - Physical Exam Constitutional: not in pain Eyes: PERRL Ears, Nose, Mouth, Throat: hearing normal Respiratory: no respiratory distress Skin: warm Musculoskeletal: full muscle strength Neurologic: AAOx3 Psychiatric: flat affect ICD10 Worksheet Patient Problems: Problems Problem Status Onset High bilirubin Acute Hyponatremia Acute Renal insufficiency Acute Vomiting Acute Alcohol intoxication Acute Allergic reaction Acute Hypoglycemia Acute Hypokalemia Acute Seizure Acute Skull fracture Acute Subarachnoid hemorrhage Acute Subdural hemorrhage Acute
[2018-05-23] MEDS: NICOTINE 21 MG/24 HR PATCH TD SCH (10:23)
[2018-05-23] MEDS: PANTOPRAZOLE SODIUM 40 MG VIAL IVP SCH (10:23)
--- NOTE | 2018-05-23 13:00 | ASDISCHSUM ---
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 Comorbidities - select Answers: Peptic ulcer disease all that apply Other Notes: Hx of TBI; Seizures # of Emergency department Answers: 3-4 visits in the last 6 months Social determinants Answers: History of substance abuse (ETOH, street drugs, prescription drugs, etc.) Mental health diagnosis (anxiety, depression, pers onality disorders, etc.) Score: 18 Date Signed: 05/23/2018 12:59 PM Electronically Signed By:Aliza Anglin CAGE Questionnaire CAGE Do you feel you ought to Answers: Yes cut down on your drinking or drug use? Do people annoy you by Answers: Yes criticizing your drinking or drug use? Do you feel guilty about Answers: Yes your drinking or drug use? Do you drink or use drugs Answers: No first thing in the morning (Eye Bit Shaver)? Date Signed: 05/21/2018 10:14 AM Electronically Signed By:MIKE Dave [facility] CM Progress Note CM Note CM Note Notes: Pts case discussed w/ Salma Gasca NP. Pt is a 22 y/o female admitted for hypokalemia and hyponatremia. Pt with a hx of etoh abuse. CM met w/ pt and provided etoh resources. CAGE completed. CM did want to discuss her etoh abuse further. Pt iwll most likely d/c independent when medically stable. Referral to [facility]. CM available for changes. Plan: Independent Date Signed: 05/21/2018 10:16 AM Electronically Signed By:MIKE Dave Case Management Discharge Plan Note Case Management Discharge Discharge Order Complete? Answers: Yes Patient to Obtain Answers: via Family Medications Transportation Arranged Answers: Family/Friends Family Notified Answers: Yes Notes: mother in the room Discharge Comments Notes: Pt to discharge home independently. Connected with [facility] by case management and given folder of resources for ETOH dependence. CM spoke with pt privately in the room regarding any other needs pt has around recovery. Pt was exasperated and dismissive of support for CM. Pt felt CM was judgmental and wanted to be left alone. CM did some education around need for persistence and finding an empathetic sponsor through AA. Pt acknowledged need to attend meetings but declined to commit to attending one this evening or tomorrow stating she was overwhelmed. Pt acknowledged being connected with [facility]. No further CM needs noted at this time. Date Signed: 05/23/2018 12:58 PM Electronically Signed By:Aliza Anglin Intervention Information Intervention Type:*Incorrect Registration Date of Service:05/20/2018 12:09 PM Patient Type:Inpatient Staff Member:RAKEL Cesar Courtney Hours: Discipline: Severity: Comment:
--- NOTE | 2018-05-23 13:18 | GDS ---
[f rep st] DISCHARGE SUMMARY DISCHARGE DIAGNOSES: 1. Nausea and vomiting in the setting of alcoholic hepatitis. 2. Alcohol-induced hepatitis. 3. Electrolyte abnormalities. 4. Reflux disease. 5. Acute kidney injury. 6. Anemia. 7. Seizure disorder with history of TBI. 8. Systemic inflammatory response syndrome on admission. 9. Bipolar disorder. HISTORY OF PRESENT ILLNESS: Briefly, the patient is a 22-year-old female with a history of alcohol a buse, a total brain injury, and seizure disorder. She presented to the emergency room with ongoing e pisodes of nausea and vomiting for 2 days. She denied any hematemesis or coffee-grounds emesis. It was noted that her potassium was extremely low and also she was quite tachycardic. She was given IV and oral potassium as well as magnesium to cover her electrolyte abnormalities. Today, she is feelin g markedly better. Her liver function tests have improved, but still much higher than her baseline. She has an appointment with Antonino this coming week. HOSPITAL COURSE: 1. Nausea and vomiting. This is completely resolved. This is likely in the setting of alcoholic he patitis. In addition, she uses cannabis daily. I explained to the patient that she could have hyper emesis syndrome. Her THC level was 800 on admission. 2. Alcohol-induced hepatitis. I reviewed her labs with her and told her my concern about the damage alcohol is causing in her liver. Her ultrasound shows mild hepatic steatosis. She is aware of that . She said she needs to decide if she is going to drink or use cannabis to help her with management of personal life issues. 3. Electrolyte abnormalities. She was treated with electrolyte protocol. She is markedly improved. 4. Reflux. Tums has helped her. 5. Acute kidney injury, resolved. 6. Anemia as well as thrombocytopenia. This is likely alcohol induced. She has an EGD scheduled. 7. Seizure disorder with a history of a brain injury. She is on Keppra. 8. SIRS, resolved. 9. Bipolar disorder, on Seroquel. DISCHARGE CONDITION: Stable. Blood pressure is 91/65, heart rate is 98, respiratory rate is 16, O2 sats on room air ranging from 90% to 93%, temperature is 36.8 Celsius. MEDICATIONS AT DISCHARGE: Please see EMR. DISCHARGE INSTRUCTIONS: 1. Recommending complete abstinence from alcohol. 2. To follow up with Antonnio as scheduled. Greater than 30 minutes discharging and coordinating the patient's care. /[id number]/MODL
[2018-05-24] MEDS ORDERED: THIAMINE HCL 100 MG TAB PO SCH (09:00)
== END 2018-05-23 11:18 | disposition home or self-care (01) | DRG 280 ==
LOC: OBSVTOIN 10:45 → F3E 11:36
PROVIDERS: ADMIT Hospitalist; ATTEND Hospitalist
DX: K70.10 Alcoholic hepatitis without ascites (principal); N17.9 Acute kidney failure, unspecified; R65.10 Systemic inflammatory response syndrome (SIRS) of non-infectious origin without acute organ dysfunction; D69.59 Other secondary thrombocytopenia; D64.9 Anemia, unspecified; E87.1 Hypo-osmolality and hyponatremia; E86.9 Volume depletion, unspecified; E87.6 Hypokalemia; F12.988 Cannabis use, unspecified with other cannabis-induced disorder; R11.2 Nausea with vomiting, unspecified; K76.0 Fatty (change of) liver, not elsewhere classified; K21.9 Gastro-esophageal reflux disease without esophagitis; G40.909 Epilepsy, unspecified, not intractable, without status epilepticus; F31.9 Bipolar disorder, unspecified; Z87.820 Personal history of traumatic brain injury; Z23 Encounter for immunization; Z72.0 Tobacco use; F10.10 Alcohol abuse, uncomplicated
CPT/HCPCS: 80307; 96374; G0009; G0472; G0480; J1953; J2060; J2405; J3411; J3475; J3480

== ENCOUNTER 2018-05-31 13:58 | Emergency (ER) | payer MEDICAID ==
--- NOTE | 2018-05-31 14:40 | EDPHY ---
General - History Smoking Status: Current every day smoker Time Seen by Provider: 05/31/18 14:40 Narrative: CLINICAL IMPRESSION: Alcohol intoxication, erratic behavior, suicidal ideation ASSESSMENT/PLAN: Patient is a 22-year-old female with a history of bipolar disorder, alcohol- induced hepatitis and seizure disorder who presents with erratic behavior, altered mentation, possible intoxication and suicidal ideation. Patient is afebrile and nontoxic-appearing, she is very agitated with erratic behavior. Her neurological exam was grossly normal with no focal deficit. She was alert to name and place. On physical exam she was easily agitated, when friends try to assist in history she picked up a full glass of water in through across the room. No findings to suggest traumatic head injury. CBC revealed no evidence of leukocytosis or anemia. Metabolic panel with no metabolic abnormalities or acute kidney injury. Liver function panel improving since visit and admission 10 days prior. negative. Tylenol, salicylate negative. Alcohol 326. Drug screen still pending. In reviewing her previous records she was discharged with lithium however she denies taking it. [place] level pending at this time. Mental health evaluation still pending in light of acute alcohol intoxication. She was given a L of normal saline and multiple doses of anti emetic as well as Ativan with improvement of her symptoms. On repeat examination and prior to transfer of care she appears still intoxicated, her abdomen is soft, nontender to palpation. She is most concerned at this time that her marijuana was laced with MDMA. Dr. Garcia will resume care of this patient at this time. DIFFERENTIAL DX: Psychosis including but not limited to head injury, chronic psychosis, medication noncompliance, medication side effect, depression and illicit drug use. ED COURSE: 1450: Patient considered gravely disabled at this time, placed on an M1 hold. 1601: Case discussed with Dr. Garcia 1635: Patient is sitting up in the bed, no acute distress. 1713: Patient with recurrent vomiting, will trial Phenergan. Her abdomen is soft with diffuse, nonfocal tenderness to palpation, no evidence of surgical abdomen. She reports feeling better than upon her arrival. In further discussion she feels that her marijuana might have been laced with MDMA, denies any other known drug use. Dr. Sovndal will resume care of this patient at this time. CHIEF COMPLAINT: Paranoid, erratic behavior, suicidal ideation, nausea and vomiting HPI: Patient is a 22-year-old female with a history of epilepsy and seizure disorder recent diagnosis of alcoholic induced hepatitis who presents to the emergency department with altered mentation, erratic behavior and concern for possible drug intoxication. Patient is brought in by boyfriend and close family friend she calls her 2nd mother. Patient is a very poor historian, history mostly taken by friends at bedside. Family friend endorses that she texted the patient around 10:00 a.m. This morning to check in with her, reports a text of her feeling bad with suicidal intentions. She subsequently went over to the house to check on her and found the patient to be incoherent not making any sense with no complete sentences. There is some question about possible drug intake however patient be he mainly denies. She denies any use of illicit drugs , occasional marijuana use and occasional alcohol but denies any recent. They report that she has been very erratic and paranoid. She reports to me that she is generally unwell without any specific complaint, she is alert and oriented. During history taking she asked for her friends to give the history however when they gave history she picked up the cup and through across the room that was full of water. Patient denies any recent fever, chills or traumatic injury. She denies any chest pain or shortness of breath. She is complaining of generalized feeling of upset to her stomach with associated nausea and vomiting. PMH: Bipolar, seizure disorder, alcohol-induced hepatitis Family History: Noncontributory Social History: Alcohol abuse, marijuana, denies illicit drug use REVIEW OF SYSTEMS: All other systems negative Constitutional: No fever, no chills, appetite change. Eyes: No discharge, vision change ENT: No sore throat, congestion, ear pain. Cardiovascular: No chest pain, no palpitations. Respiratory: No cough, no shortness of breath. Gastrointestinal: Nausea, vomiting, generalized abdominal discomfort. Genitourinary: No hematuria, dysuria, flank pain, pelvic pain Musculoskeletal: No back pain, joint swelling, joint pain, myalgias. Skin: No rashes, color change. Neurological: No headache, dizziness, weakness. PHYSICAL EXAM: General Appearance: Unkempt, not toxic-appearing. HENT: Normocephalic, atraumatic. Bilateral external ears are normal. Bilateral tympanic membranes are normal with pearly burgos reflex. Nares are clear, mucosa is pink. Oropharynx is clear, uvula is midline. There is no tonsillar enlargement or exudate. The dentition is normal. Eyes: PERRLA, no acute vision change, nystagmus, swelling, discharge, pain or photosensitivity. Conjunctiva pink, no pallor or injection Neck: Supple, nontender, no lymphadenopathy, no midline pain, FROM, no meningismus. Respiratory: There are no retractions, lungs are clear to auscultation. Cardiac: Regular rate and rhythm, no murmurs or gallops. Gastrointestinal: Abdomen is soft, bowel sounds normal, no masses/hernia, no rigidity, guarding or focal peritoneal findings. She is diffusely tender throughout her abdomen, nonfocal. Neurological: Alert and oriented x 3, CN 2-12 grossly intact, normal gait no ataxia, DTR's intact, normal sensation and strength Skin: Warm, dry, no rashes, no nodules on palpation. Musculoskeletal: Extremities are symmetrical, full range of motion, no tenderness, deformity, swelling, or erythema. Psychiatric: Patient is oriented to name and place, date off by a day. Patient has poor eye contact, erratically behavior. MEDICAL DECISION MAKING: Patient was seen independently. Secondary supervising physician at time of evaluation was Dr. Garcia. Diagnosis: Acute intoxication, paranoia, erratic behavior, suicidal ideation. New, requires workup Summary: See Assessment and Plan for summary of ED visit Clinical lab tests: ordered / reviewed. Independent visualization of images, tracing, or specimens: Yes. Decision to obtain medical records or history from someone other than the patient: Yes, family friend Review / Summarize previous medical records: Yes Discussed patient with another provider: Yes, Dr. Garcia Patient Progress: Stable, dispo pending. (Mara Moon) The patient was evaluated and managed by the physician's credentialing assistant. My cosignature indicates that I reviewed the chart and I agree with the findings and plan of care as documented. I am the secondary supervising physician. On recheck, the patient was sitting comfortably in bed. She had no new complaints. She was waiting valuation. 0: Patient had an episode of vomiting. No acute abdomen. She was given Zofran. I evaluated the patient. She is lying in bed comfortably. Abdomen was soft, nontender nondistended. 2139: Patient had another episode emesis. The nurse states that when she drinks water she subsequently vomits. Because of this the patient was given normal saline 1 L IV for hydration. Repeat CBC and chemistry were ordered. Patient's white count has increased to 14,000. Patient had a slight drop in hematocrit. Patient's chemistry panel is notable for low potassium. Potassium chloride 60 mEq orally was given. Potassium chloride 10 mEq IV was also administered. 2300: The patient is signed out to Dr. Tristan at change of shift. (Angi Garcia) 3:00 a.m.- Patient initially had ongoing vomiting. Her BMP was checked and she appeared to be hypokalemic, however with low calcium I suspected that this could be a diluted sample. We held potassium and rechecked her chemistries. Her potassium is 3.3. Because of this, I will give her a small amount of supplemental oral potassium. According to the nurse, the patient had ongoing vomiting here and has been drinking large amounts of water despite our instructions not to do this. I will order a dose of Ativan to help with her vomiting. 5:51 a.m.- Patient has been stable after receiving Ativan. She has had no ongoing vomiting. Case will be signed out at 7:00 a.m. To the oncoming provider Dr. Byers. Patient is awaiting mental health evaluation. (Susy Tristan) 0700: I assumed care of this patient from Dr. Muniz at shift change. 0235: Patient care turned over to Dr. Samson pending placement for bipolar disorder. (Dileep Byers) Care assumed at 2:36 p.m. From [facility] with plan for hospitalization for this 22 -year-old patient with bipolar disorder. 1826: The patient will be transferred to [facility] for inpatient psychiatric hospital bed not available at this facility, in stable condition; accepting physician is Dr. Mcfarlane. EMTALA form completed. (Cristi Samson) - Objective Vital Signs: Initial Vital Signs Temperature (C) 37.3 C 05/31/18 14:06 Heart Rate 111 H 05/31/18 14:06 Respiratory Rate 16 05/31/18 14:06 Blood Pressure 139/104 H 05/31/18 14:06 O2 Sat (%) 96 05/31/18 14:06 O2 Delivery Mode Room Air Allergies/Adverse Reactions: diphenhydramine HCl [From Benadryl] Allergy (Verified 05/31/18 14:05) Hives latex Allergy (Verified 05/31/18 14:05) peanut Allergy (Verified 05/31/18 14:05) BEE STING Allergy (Uncoded 05/31/18 14:05) Home Medications: Medication Instructions Recorded [place] Carbonate [[place] 600 mg PO HS 02/07/18 Carbonate Cap 300 mg (*)] Metoclopramide [Reglan 10 mg tab 5 - 10 mg PO TID PRN 02/07/18 (*)] QUEtiapine FUMARATE [Seroquel 25 25 mg PO BID PRN 02/07/18 mg (*)] Ranitidine HCl [Zantac] 300 mg PO BID PRN 02/07/18 Sucralfate [Carafate 1 GM (*)] 1 gm PO QID 02/07/18 Temazepam [Restoril 15 MG (*)] 15 mg PO HS PRN 02/07/18 levETIRAcetam [Keppra] 1,500 mg PO BID 02/07/18 traZODone [traZODONE 50MG (*)] 50 mg PO HS 02/07/18 Ondansetron Odt [Zofran Odt 4 mg 4 mg PO Q4 PRN #12 tab 02/15/18 (*)] Pantoprazole Sodium [Protonix 40mg 40 mg PO DAILY #30 tab 02/15/18 (*)] Promethazine HCl [Phenergan] 25 mg RC Q6 PRN #10 supp.rect 02/15/18 QUEtiapine FUMARATE [Seroquel 300 mg PO HS 03/06/19 300mg (*)] Calcium Carbonate [Tums 500MG (*)] 500 mg PO TID PRN tab.chew 05/23/18 Thiamine HCl [Vitamin B-1] 100 mg PO DAILY tab 05/23/18 Laboratory Results: Laboratory Results 05/31/18 22:01 06/01/18 06:26 06/01/18 06:26 Sodium 136 mEq/L mEq/L (135-145) Potassium 3.4 mEq/L L mEq/L (3.5-5.2) Chloride 95 mEq/L L mEq/L (97-110) Carbon Dioxide 25 mEq/l mEq/l (22-31) Anion Gap 16 mEq/L H mEq/L (6-14) BUN 4 mg/dL L mg/dL (7-23) Creatinine 0.4 mg/dL L mg/dL (0.6-1.0) Estimated GFR > 60 Glucose 114 mg/dL H mg/dL (70-100) Calcium 8.7 mg/dL mg/dL (8.5-10.4) Medications Given: Ondansetron HCl (Zofran) 4 mg IVP Q4 PRN PRN Reason: Nausea/Vomiting, Can't Take PO Stop: 11/27/18 14:56 Last Admin: 05/31/18 20:13 Dose: 4 mg Discontinued Medications Haloperidol Lactate (Haldol Injection) 5 mg IVP EDNOW ONE Stop: 06/01/18 06:17 Last Admin: 06/01/18 06:26 Dose: 5 mg Sodium Chloride (Ns) 1,000 mls @ 0 mls/hr IV ONCE ONE PRN Reason: Wide Open Stop: 05/31/18 14:58 Last Admin: 05/31/18 15:28 Dose: 1,000 mls Sodium Chloride (Ns) 1,000 mls @ 0 mls/hr IV EDNOW ONE; Wide Open PRN Reason: Protocol Stop: 05/31/18 21:43 Last Admin: 05/31/18 21:45 Dose: 1,000 mls Potassium Phosphate 10 mmol/ (Dextrose) 253.3333 mls @ 42.222 mls/hr IV EDNOW ONE Stop: 06/01/18 04:55 Last Admin: 06/01/18 02:21 Dose: Not Given Levetiracetam 750 mg/ Sodium (Chloride) 107.5 mls @ 430 mls/hr IV ONCE ONE Stop: 06/01/18 09:44 Last Admin: 06/01/18 10:07 Dose: 107.5 mls Lorazepam (Ativan Injection) 1 mg IVP EDNOW ONE Stop: 06/01/18 03:16 Last Admin: 06/01/18 03:19 Dose: 1 mg Lorazepam (Ativan Injection) 1 mg IVP EDNOW ONE Stop: 06/01/18 06:17 Last Admin: 06/01/18 06:29 Dose: 1 mg Potassium Chloride (Potassium Chloride Oral Liquid) 60 meq PO EDNOW ONE Stop: 05/31/18 22:57 Last Admin: 06/01/18 02:22 Dose: Not Given Potassium Chloride (Potassium Chloride Oral Liquid) 20 meq PO EDNOW ONE Stop: 06/01/18 01:51 Last Admin: 06/01/18 02:31 Dose: 20 meq Promethazine HCl (Phenergan) 12.5 mg IVP ONCE ONE Stop: 05/31/18 17:14 Last Admin: 05/31/18 17:20 Dose: 12.5 mg Departure - Departure Disposition: Other Psych, Not [place] Clinical Impression: Suicidal ideation Alcohol intoxication Qualifiers: Complication of substance-induced condition: uncomplicated Qualified Code(s): F10.920 - Alcohol use, unspecified with intoxication, uncomplicated Condition: Good Referrals: NONE *PRIMARY CARE P,. [Primary Care Provider] - As per Instructions
[2018-05-31] MEDS ORDERED: NS 1,000 ML IV ONE ×2 (14:57→21:42)
[2018-05-31 15:05] LABS: PLATELET COUNT 582 10^3/uL (150-400)
[2018-05-31] MEDS ORDERED: HALOPERIDOL LACT 5 MG/ML INJ ONE (15:22)
[2018-05-31] MEDS ORDERED: LORazepam 2 MG/ML INJ ONE (15:24)
[2018-05-31] MEDS: ONDANSETRON 4 MG/2 ML VIAL IVP PRN ×3 (15:28→20:13)
[2018-05-31] MEDS ORDERED: PROMETHAZINE HCL 25 MG/ML INJ IVP ONE (17:13)
[2018-05-31 22:29] LABS: PLATELET COUNT 531 10^3/uL (150-400)
[2018-05-31] MEDS ORDERED: POTASSIUM CL 20 MEQ/15 ML UDCUP PO ONE (22:56)
[2018-05-31] MEDS ORDERED: K PHOS 10 MMOL in D5W 250 ML IV ONE (22:56)
[2018-06-01] MEDS ORDERED: POTASSIUM CL 20 MEQ/15 ML UDCUP PO ONE (01:50)
[2018-06-01] MEDS ORDERED: LORazepam 2 MG/ML INJ IVP ONE ×2 (03:15→06:16)
[2018-06-01] MEDS ORDERED: LORazepam 2 MG/ML INJ ONE (03:16)
[2018-06-01] MEDS ORDERED: HALOPERIDOL LACT 5 MG/ML INJ IVP ONE (06:16)
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
[2018-06-01] MEDS ORDERED: levETIRAcetam 750 MG in NS 100 ML IV ONE (09:30)
--- NOTE | 2018-06-01 16:39 | ASMTLCPROG ---
Notes Note: Notes: TLC looking for placement preferrably in a facility which would accept a pt. with a dual dx. Pt was declined at [facility] and [facility]. Pt also declined at [facility] due to requirement to wait 24 hours after an emed injection. Referral made to [facility]. If pt. is not accepted at [facility] will explore option to [facility]. Date Signed: 06/01/2018 04:38 PM Electronically Signed By:Chari Madison
--- NOTE | 2018-06-01 18:33 | ASMTTCLDSP ---
TLC Discharge Disposition Disposition: Answers: Transfer Discharge Concerns/Recommendations: Notes: In consultation with [facility] ED physician,Dr Samson and on-call psychiatrist,Dr Rodriguez , both concurred that Pt does appear to meet 27-65 criteria requiring psychiatric hospitalization as Pt does appear to be an imminent risk of harm to self due to a mental illness condition. Pt was read the Patient Rights and Responsibilities Statement on 05/04/2018 at 18:30, original placed in chart and copy given to pt. For Transfers, Accepting [facility] Facility: For Transfers, Accepting Dr Trujillo Psychiatrist: Date Signed: 06/01/2018 06:32 PM Electronically Signed By:Andreina Turpin
[2018-06-01 21:45] VITALS: BP 116/91
== END 2018-06-01 21:45 ==
DX: R45.851 Suicidal ideations (principal); F31.9 Bipolar disorder, unspecified; F10.129 Alcohol abuse with intoxication, unspecified; E86.9 Volume depletion, unspecified; Y90.8 Blood alcohol level of 240 mg/100 ml or more
CPT/HCPCS: 80305; 96374; G0480; J1630; J1953; J2060; J2405; J2550